=== PATIENT | male | born 2000 | race Caucasian/White ===

== ENCOUNTER 2023-10-29 09:36 | Outpatient (CLI) | payer OTHER, SELFPAY ==
[2023-10-31 03:03] LABS: Immunoglobulin A 189 mg/dL (47-310); TTG IGA AB <1.0 U/mL
== END 2023-10-29 09:37 | disposition home or self-care (01) ==
LOC: ANHLAB 09:39
PROVIDERS: PCP Family Medicine; Visit Provider Nurse Practitioner
DX: R10.30 Lower abdominal pain, unspecified (principal); R15.2 Fecal urgency; R19.4 Change in bowel habit
CPT/HCPCS: 36415; 82784; 86364

== ENCOUNTER 2023-12-11 00:33 | Day surgery (SDC) | payer OTHER, SELFPAY ==
[2023-11-20 09:09] VITALS: BMI 28.8
[2023-12-11 13:55] VITALS: BP 125/63; PULSE 62; RESP 17; TEMP 36.3; O2SAT 99
[2023-12-11] MEDS: LACTATED RINGERS 1,000 ML 150 ML IV CONT (14:03)
--- NOTE | 2023-12-11 14:16 | PM.HPGS ---
History of Present Illness History of Present Illness Consent: Risks, benefits, and alternatives have been discussed and questions answered. Patient agrees to proceed with procedure. Chief complaint: Fecal urgency, Melena, Lower abdominal pain Narrative: Jean-Paul Corado is a 23 year old male here for first colonoscopy, intermittent blood in stool and lower abdominal discomfort, serology for celiac negative Review of Systems Review of Systems: All systems reviewed & are unremarkable except as noted in HPI and below PMFSH Social History Social History Smoking status: Never smoker Tobacco type: e-cigarettes/vaping Alcohol intake: current Drinks per week: 3 Living arrangements: with friend(s) Meds Home Medications and Allergies Home Medications Medication Instructions Recorded Confirmed Type No Home Medications 10/29/23 11/20/23 History Allergies Allergy/AdvReac Type Severity Reaction Status Date / Time No Known Allergies Allergy Verified 11/20/23 09:08 Vital Signs Vital Signs - 24 hr 12/11/23 13:55 Temperature 97.3 F L Pulse Rate 62 Respiratory Rate 17 Blood Pressure 125/63 Pulse Oximetry 99 Oxygen Delivery Room Air Exam Const: General: comfortable and no acute distress HENMT: Face/Nose/Sinus: Normal nares present Eyes: General: appearance normal, both eyes and all related structures Neck: Neck: no JVD Resp: Auscultation: clear to auscultation bilaterally Cardio: Rate: regular rate Rhythm: regular rhythm GI: Inspection: non-distended GI Palp: Yes Soft to palpation Skin: General skin exam: normal color Neuro: General: gait normal Speech: normal speech Extrem: General: normal to inspection Psych: Mental Status: mental status grossly normal Assessment and Plan Assessment and plan (1) Lower abdominal pain: Code(s): R10.30 - Lower abdominal pain, unspecified Status: Acute Assessment and Plan: colonoscopy (2) Hematochezia: Code(s): K92.1 - Melena Status: Acute
--- NOTE | 2023-12-11 14:23 | WPDANESEPPF ---
Anes - Initial Pre Proc Eval Procedure: Operation Date: 12/11/23 15:00 Proposed Procedures p Colonoscopy - Desmond Camp MD Date/Time: 12/11/23 14:23 Surgeon: Desmond Camp MD Pre Op Diagnosis: Fecal urgency, Melena, Lower abdominal pain Patient Data Age: 23 Gender: M Height: 1.78 m Weight: 84.5 kg Last Vital Signs Temp 36.3 C L 12/11/23 13:55 Pulse 62 12/11/23 13:55 Resp 17 12/11/23 13:55 BP 125/63 12/11/23 13:55 Pulse Ox 99 12/11/23 13:55 O2 Del Method Room Air 12/11/23 13:55 Allergies Allergy/AdvReac Type Severity Reaction Status Date / Time No Known Allergies Allergy Verified 11/20/23 09:08 Home Medications Medication Instructions Recorded Confirmed Type No Home Medications 10/29/23 11/20/23 History Patient hx anesthesia problems: none Family hx anesthesia problems: none Results Review: All pre-operative results and documents have been reviewed as part of the pre-operative evaluation. [facility] Social History Social History Smoking status: Never smoker Tobacco type: e-cigarettes/vaping Alcohol intake: current Drinks per week: 3 Living arrangements: with friend(s) Anes - Eval Final PreProcedure Day of Procedure 12/11/23 14:23 Patient weight: overweight Heart: regular rate and rhythm Lungs: clear to auscultation Airway: Mallampati scale class II Neurological: alert and oriented Last oral intake: >/= 8 hours ASA classification: II Emergent: no Anesthetic plan: proceed Anesthesia type and monitoring: general GIVS and standard monitoring Results Review: All pre-operative results and documents have been reviewed as part of the pre-operative evaluation. Informed Consent: The patient's anesthetic plan and its attendant risks and benefits were discussed with the patient/family/POA. Questions were solicited and answers provided to the satisfaction of the patient/family/POA.
[2023-12-11 14:57] VITALS: BP 99/59; PULSE 73; RESP 21; O2SAT 98
[2023-12-11 15:07] VITALS: BP 102/58; PULSE 61; RESP 16; O2SAT 98
[2023-12-11 15:17] VITALS: BP 105/72; PULSE 80; RESP 16; O2SAT 98
== END 2023-12-11 15:26 | disposition home or self-care (01) ==
PROVIDERS: PCP Family Medicine; Referring Provider Nurse Practitioner; Visit Provider Internal Medicine Gastroenterology
PROC: 0DJD8ZZ Inspection of Lower Intestinal Tract, Via Natural or Artificial Opening Endoscopic (ICD-10-PCS; CPT 45378; principal; 2023-12-11 15:00)
DX: K92.1 Melena (principal); R10.30 Lower abdominal pain, unspecified
CPT/HCPCS: 45380; 88305; J2001; J2704; J7120